=== PATIENT | male | born 1950 | race Caucasian/White ===

== ENCOUNTER → 2021-01-21 | Outpatient (CLI) | payer MEDICARE, OTHER ==
--- NOTE | 2021-01-21 14:58 | Diagnostic Imaging Report ---
INDICATION: Back pain. FINDINGS: Lumbar statures are normal. The alignment is anatomic. The disc space is maintained. No fracture or bony destruction. IMPRESSION: Unremarkable lumbar spine radiographs. Dictated by: Dictated on workstation # [id number]
== END ==
LOC: RAD 14:28
PROVIDERS: ATTEND Nurse Practitioner Family
DX: M54.50 Low back pain, unspecified (principal); I10 Essential (primary) hypertension; M10.9 Gout, unspecified
CPT/HCPCS: 72100